=== PATIENT | male | born 1970 ===

== ENCOUNTER 2017-07-11 19:14 | Emergency (ER) | payer SELFPAY ==
[2017-07-11 19:40] VITALS: RESP 20
[2017-07-11] MEDS ORDERED: Fluorescein 1 mg Ophthalmic Strip OD ONE (19:48)
[2017-07-11] MEDS ORDERED: Tetracaine 0.5% Ophth 2 ML BOTTLE OU ONE (19:48)
[2017-07-11] MEDS ORDERED: Fluorescein 1 mg Ophthalmic Strip ONE (20:01)
[2017-07-11] MEDS ORDERED: Tetracaine 0.5% Ophth (OR ONLY) ONE (20:01)
--- NOTE | 2017-07-11 20:24 | C.PDOC ---
History Of Present Illness 47 yo male c/o right eye pain since earlier today. Pt notes he was cutting grass and he got it in his eye. No change in vision. (+) tearing. 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 History/Exam Limitations: no limitations Onset/Duration Of Symptoms: Hrs Current Symptoms Are (Timing): Still Present Past Medical History Vital Signs: Last Vital Signs Temp 98.5 F 07/11/17 19:36 Pulse 81 07/11/17 19:36 Resp 20 07/11/17 19:36 BP 155/93 H 07/11/17 19:36 Pulse Ox 99 07/11/17 19:36 Family History: States: Unknown Family Hx - Social History Hx Alcohol Use: No Hx Substance Use: No - Immunization History Hx Tetanus Toxoid Vaccination: No Hx Influenza Vaccination: No Hx Pneumococcal Vaccination: No Physical Exam - Physical Exam Appears: Well, Non-toxic, No Acute Distress Skin: Normal Color, Warm, Dry Head: Atraumatic, Normacephalic Eye(s): bilateral: PERRL, EOMI, right: Other ((+) fluorscine uptake at 6 oclock ; (+) injection (+) tearing (+) pterygium (-) FB with lid inversion), left: Normal Inspection Nose: Normal Oral Mucosa: Moist Neck: Normal, Normal ROM, Supple Chest: Symmetrical Cardiovascular: Rhythm Regular Respiratory: Normal Breath Sounds, No Accessory Muscle Use Extremity: Normal ROM Neurological/Psych: Oriented x3, Normal Speech, Normal Cognition ED Course And Treatment O2 Sat by Pulse Oximetry: 99 Progress Note: Eye irragted by RN. Pt was instructed to follow up with optho in 1-2 days. Structural Engineering Project Manager used to ensure understanding. Disposition - Disposition Referrals: Abel Brown MD [Staff Provider] - Disposition: HOME/ ROUTINE Disposition Time: 20:23 Condition: STABLE Additional Instructions: Vaya a rosa mdico o la clnica en 2-5 larkin sin falta, para mas evaluacin. [place] los medicamentos martita indicado. Volver a la patrick de emergencia en cualquier momento si los sntomas persisten o empeoran. Prescriptions: Tobramycin 0.3% [Tobramycin 5 Ml] 1 drop OP Q4 #1 bottle Instructions: Corneal Abrasion (ED) Forms: [employer] (Bulgarian) Print Language: CITIZEN OF [place] - Clinical Impression Clinical Impression: Corneal abrasion
[2017-07-11] MEDS ORDERED: Tobramycin 0.3% OPH OINT OD STA (20:40)
[2017-07-11] MEDS ORDERED: Tobramycin 0.3% OPH OINT ONE (20:43)
[2017-07-11 20:46] VITALS: BP 163/88; PULSE 75; TEMP 98.3; O2SAT 98
== END 2017-07-11 20:47 | disposition home or self-care (01) ==
LOC: C.ER 19:14
DX: S05.01XA Injury of conjunctiva and corneal abrasion without foreign body, right eye, initial encounter (principal); X58.XXXA Exposure to other specified factors, initial encounter

== ENCOUNTER 2017-10-02 18:22 | Emergency (ER) | payer OTHER ==
[2017-10-02 18:33] VITALS: PULSE 77
--- NOTE | 2017-10-02 19:59 | C.PDOC ---
History Of Present Illness 47 year old male presents to the ER with a complaint of atraumatic right shoulder pain for the past 2 months. Patient note he has been doing a lot of heavy lifting at work. Denies weakness or numbness. Time Seen by Provider: 10/02/17 19:21 Chief Complaint (Nursing): Upper Extremity Problem/Injury History Per: Patient History/Exam Limitations: no limitations Onset/Duration Of Symptoms: Days Current Symptoms Are (Timing): Still Present Exacerbating Factor(s): Nothing Recent travel outside of the [place]: No Past Medical History Reviewed: Historical Data, Nursing Documentation, Vital Signs Vital Signs: Last Vital Signs Temp 97.3 F L 10/02/17 20:25 Pulse 77 10/02/17 20:25 Resp 18 10/02/17 20:25 BP 143/92 H 10/02/17 20:25 Pulse Ox 98 10/02/17 20:50 - Medical History PMH: No Chronic Diseases Surgical History: No Surg Hx Family History: States: Unknown Family Hx - Social History Hx Alcohol Use: Yes Hx Substance Use: No - Immunization History Hx Tetanus Toxoid Vaccination: No Hx Influenza Vaccination: No Hx Pneumococcal Vaccination: No Review Of Systems Musculoskeletal: Positive for: Shoulder Pain Neurological: Negative for: Weakness, Numbness Physical Exam - Physical Exam Appears: Non-toxic, No Acute Distress Skin: Normal Color, Warm, Dry Eye(s): bilateral: Normal Inspection, EOMI Extremity: Normal ROM (x4), No Tenderness, No Deformity, No Swelling Extremity: Bilateral: Atraumatic Pulses: Left Radial: Normal, Right Radial: Normal Neurological/Psych: Oriented x3, Normal Speech, Normal Cognition, Normal Motor, Normal Sensation ED Course And Treatment O2 Sat by Pulse Oximetry: 98 (Room air) Pulse Ox Interpretation: Normal Progress Note: Toradol administered, patient reports improvement of pain; will discharge with instructions to follow up with PMD. Disposition Counseled Patient/Family Regarding: Diagnosis, Need For Followup, Rx Given - Disposition Referrals: [facility] [Outside] Disposition: HOME/ ROUTINE Disposition Time: 19:52 Condition: STABLE Additional Instructions: Please follow up in clinic Take meds as directed Return to ER if worse Prescriptions: Naproxen [Naprosyn] 1 tab PO BID PRN #20 tab PRN Reason: Pain Instructions: Shoulder Pain (ED) Forms: [employer] (Fijian) Print Language: AZERI - Clinical Impression Clinical Impression: Shoulder pain, right - Scribe Statement The provider has reviewed the documentation as recorded by the Scribdiana Veloz All medical record entries made by the Matiasibdiana were at my direction and personally dictated by me. I have reviewed the chart and agree that the record accurately reflects my personal performance of the history, physical exam, medical decision making, and the department course for this patient. I have also personally directed, reviewed, and agree with the discharge instructions and disposition.
[2017-10-02 20:27] VITALS: BP 143/92; RESP 18; TEMP 97.3
[2017-10-02 20:49] VITALS: O2SAT 98
== END 2017-10-02 20:27 | disposition home or self-care (01) ==
LOC: C.ER 18:22
DX: M25.511 Pain in right shoulder (principal)
CPT/HCPCS: 96372; 99284; J1885

== ENCOUNTER 2017-11-03 09:57 | Emergency (ER) | payer OTHER ==
[2017-11-03 10:00] VITALS: BP 152/88; PULSE 93; TEMP 98.1; O2SAT 98
[2017-11-03 10:26] VITALS: RESP 16
--- NOTE | 2017-11-03 12:23 | C.PDOC ---
History Of Present Illness Roderick Dodd is a 47 y/o male who presents complaining of upper back and right shoulder pain, ongoing for several months. States that he has not taken any medicine for the past month. No recent trauma. No chest pain or shortness of breath. Patient does not have a PMD. Time Seen by Provider: 11/03/17 10:09 Chief Complaint (Nursing): Upper Extremity Problem/Injury History Per: Patient History/Exam Limitations: no limitations Onset/Duration Of Symptoms: Days (> 1 month) Current Symptoms Are (Timing): Still Present Past Medical History Reviewed: Historical Data, Nursing Documentation, Vital Signs Vital Signs: Last Vital Signs Temp 98.1 F 11/03/17 09:59 Pulse 93 H 11/03/17 09:59 Resp 16 11/03/17 10:25 BP 152/88 H 11/03/17 09:59 Pulse Ox 98 11/03/17 12:29 - Medical History PMH: No Chronic Diseases Surgical History: No Surg Hx Family History: States: Unknown Family Hx - Social History Hx Alcohol Use: Yes Hx Substance Use: No - Immunization History Hx Tetanus Toxoid Vaccination: No Hx Influenza Vaccination: No Hx Pneumococcal Vaccination: No Review Of Systems Except As Marked, All Systems Reviewed And Found Negative. Cardiovascular: Negative for: Chest Pain Respiratory: Negative for: Shortness of Breath Genitourinary: Negative for: Dysuria, Incontinence Musculoskeletal: Positive for: Shoulder Pain (right), Back Pain (upper) Neurological: Negative for: Weakness, Numbness (and tingling) Physical Exam - Physical Exam Appears: Non-toxic, No Acute Distress Skin: Normal Color, Warm, Dry Head: Atraumatic, Normacephalic Eye(s): bilateral: Normal Inspection, PERRL, EOMI Oral Mucosa: Moist Throat: Normal Neck: Normal ROM, No Midline Cervical Tenderness, Supple Cardiovascular: Rhythm Regular, No Murmur Respiratory: Normal Breath Sounds, No Accessory Muscle Use Back: No Vertebral Tenderness, Paraspinal Tenderness (Tenderness to right upper back) Extremity: Normal ROM, No Pedal Edema, No Deformity Neurological/Psych: Oriented x3, Normal Speech Gait: Steady ED Course And Treatment O2 Sat by Pulse Oximetry: 98 (RA) Pulse Ox Interpretation: Normal Medical Decision Making Medical Decision Making: Plan: Flexeril 10 mg PO Ibuprofen 600 mg PO Pt is medically stable, counseled regarding diagnosis of musculoskeletal pain. Will d/c with prescriptions for muscle relaxer and ibuprofen. Pt is to follow up with the clinic for further evaluation. Return to ER if symptoms worsen. Disposition Counseled Patient/Family Regarding: Diagnosis, Need For Followup, Rx Given - Disposition Referrals: [facility] [Outside] [facility] [Outside] Disposition: HOME/ ROUTINE Disposition Time: 10:05 Condition: GOOD Additional Instructions: Thank you for letting us take care of you today. If you were prescribed any medication, please fill it and take as directed. It may take several days for your symptoms to resolve. Return to the Emergency Department if your symptoms worsen, do not improve, or if you have any other problems. Please contact your doctor or call one of the physicians/clinics you have been referred to that are listed on the Patient Visit Information form that is included in your discharge packet. Bring any paperwork you were given at discharge with you along with any medications you are taking to your follow up visit. Our treatment cannot replace ongoing medical care by a primary care provider (PCP) outside of the emergency department. Thank you for allowing the [facility] team to be part of your care today. Follow up with the clinic in 3-4 days for re-evaluation and outpatient care. Daniel por dejarnos atenderlo hoy. Si le prescribieron algn medicamento, ll pattie y tome segn las indicaciones. Sarah sntomas pueden tardar varios larkin en resolverse. Regrese al Departamento de Emergencia si sarah sntomas empeoran, no mejoran o si tiene algn otro problema. Comunquese con rosa mdico o llame a jigar de los mdicos / clnicas a los que fernandez sido referido que figura en el formulario de Informacin de visita del paciente que se incluye en rosa paquete de laura. Traiga todos los documentos que recibi al momento del laura junto con los medicamentos que est tomando en rosa visita de seguimiento. Nuestro tratamiento no puede reemplazar la atencin mdica en curso por parte de un proveedor de atencin primaria (PCP) fuera del departamento de emergencias. Daniel por permitir que el equipo de [facility] sea parte de rosa cuidado hoy. Karol un seguimiento con la clnica en 3-4 larkin para william nueva evaluacin y atencin ambulatoria. Prescriptions: Cyclobenzaprine [Cyclobenzaprine HCl] 10 mg PO Q8 PRN #20 tab PRN Reason: Muscle Spasm Ibuprofen [Motrin] 600 mg PO Q6 PRN #20 tab PRN Reason: Pain, Moderate (4-7) Instructions: Musculoskeletal Pain (ED) Forms: Gen Discharge Inst Kittitian Print Language: DANISH - Clinical Impression Clinical Impression: Shoulder pain, right - Scribe Statement The provider has reviewed the documentation as recorded by the Scribe (Mayra Plaza) Provider Attestation: All medical record entries made by the Scribe were at my direction and personally dictated by me. I have reviewed the chart and agree that the record accurately reflects my personal performance of the history, physical exam, medical decision making, and the department course for this patient. I have also personally directed, reviewed, and agree with the discharge instructions and disposition.
== END 2017-11-03 10:25 | disposition home or self-care (01) ==
LOC: C.ER 09:57
DX: M25.511 Pain in right shoulder (principal)